=== PATIENT | male | born 1980 | race African-American/Black ===

== ENCOUNTER 2017-09-15 01:01 | Emergency (ER) | payer SELFPAY ==
[~2017-09-15] VITALS: Ht 175.3 cm; Wt 83.5 kg
--- NOTE | 2017-09-15 01:19 | NUR ---
PT BIB [facility] WITH A C/O ETOH. PT REFUSED CARE. PT'S FRIEND IS AT THE BEDSIDE AND WILL TAKE PT HOME. Patient does not wish to proceed with medical care recommended by Dr. GUZMAN. Patient given information related to possible complications, up to and including , which could occur as a result of leaving the hospital at this time. Patient verbalizes understanding of risks involved due to leaving against medical advice. Patient has signed AMA form.
--- NOTE | 2017-09-15 01:20 | NUR ---
PT AMBULATED OUT WITH A STEADY GAIT. PT'S FRIEND IS DRIVING PT HOME.
[2017-09-15 01:21] VITALS: BP 145/83
== END 2017-09-15 01:22 | disposition left against medical advice (07) ==
LOC: ER 01:02
DX: F10.129 Alcohol abuse with intoxication, unspecified (principal); F14.129 Cocaine abuse with intoxication, unspecified; I25.2 Old myocardial infarction; Z53.20 Procedure and treatment not carried out because of patient's decision for unspecified reasons
CPT/HCPCS: A4606; Z7610